=== PATIENT | female | born 1995 | race Caucasian/White ===

== ENCOUNTER 2017-09-27 22:01 | Emergency (ER) | payer OTHER ==
[~2017-09-27] VITALS: Ht 180.3 cm; Wt 104.3 kg
[~2017-09-27 22:01] MED LIST: MEDR150D3 IM
--- NOTE | 2017-09-27 22:21 | PHYS DOC ---
General Chief Complaint: CHEST PAIN Stated Complaint: CHEST PRESURE Time Seen by MD: 22:03 Source: patient Exam Limitations: no limitations Problems: History of Present Illness Initial Comments 22-year-old female comes in the ED complaining of chest pain. 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 No nausea vomiting or diaphoresis no arm or neck symptoms, the symptoms scared her so she came in for evaluation. She has history of sinus bradycardia she's been fully evaluated by cardiology in the past. She has exams tomorrow and is very stressed no history of panic attacks or anxiety in the past. Timing/Duration: 1-3 hours Severity: moderate Modifying Factors: improves with other Associated Symptoms: chest pain, shortness of breath, other Allergies: Coded Allergies: Sulfa (Sulfonamide Antibiotics) (Verified Allergy, Unknown, 08/17/15) Past Medical History Medical History: other (sinus bradycardia, migraines) Surgical History: no surgical history Family History Significant Family History: other Social History Smoker: non-smoker Alcohol: none Drugs: none Review of Systems Constitutional: denies chills, denies fever, denies malaise Respiratory: denies cough, shortness of breath, denies wheezing Cardiovascular: chest pain, palpitations, denies syncope Gastrointestinal: denies abdominal pain, denies nausea, denies vomiting Musculoskeletal: denies back pain, denies joint swelling, denies neck pain Psychiatric/Neurological: denies headache, denies numbness, denies paresthesia , denies weakness Hematologic/Lymphatic: denies blood clots, denies easy bleeding, denies easy bruising Physical Exam General Appearance: WD/WN, no apparent distress Eyes: bilateral eye normal inspection, bilateral eye PERRL, bilateral eye EOMI Ear, Nose, Throat: hearing grossly normal, normal ENT inspection Neck: non-tender, full range of motion, supple Respiratory: normal breath sounds, no respiratory distress Cardiovascular: normal peripheral pulses, bradycardia Gastrointestinal: non tender, soft Back: no CVA tenderness, no vertebral tenderness Extremities: non-tender, normal inspection, no pedal edema, no calf tenderness 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 Interpreted by me. AP chest: No acute cardiopulmonary process interpreted by me Potassium 3.4 (20 mEq given by mouth) otherwise labs reassuring Patient received GI cocktail, potassium by mouth, and Ativan 0.5 mg IV. Shortly thereafter her symptoms resolved completely and she was requesting discharge home. She feels like the Ativan relieved her symptoms, admits to some anxiety. I discussed departure instructions face to face and provided them as below. Discussed signs and symptoms to monitor as well as indications for urgent return to the department. Discussed stress management, prescription and over-the -counter medications. Discussed dietary recommendations and the patient's questions were answered to her satisfaction. She expressed agreement and understanding with the treatment plan. Departure Time of Disposition: 00:40 Disposition: HOME, SELF-CARE Diagnosis: anxiety, hypokalemia Condition: IMPROVED Patient Instructions: Anxiety and Panic Attacks, [id number]-[id number], Hypokalemia- Brief Additional Instructions: Please review the patient education materials given by ED staff. One banana daily to supplement potassium. Consider exercise, counseling, or follow-up with your doctor if you feel anxiety is increasing. School/work excuse for today September 28. Follow-up with your doctor in 3-5 days for recheck. Return to ED with new or changing symptoms. ANGELINA CARRENO DO Sep 27, 2017 22:21
[2017-09-27] MEDS ORDERED: LORazepam 2 MG/ML VIAL IV ONE (22:45)
[2017-09-27 22:54] LABS: BASO % 1 % (0-3); EOS # 0.1 x10^3/uL (0.0-0.7); EOS % 2 % (0-3); HEMATOCRIT 40.7 % (36.0-47.0); LYMPH # 2.5 x10^3/uL (1.0-4.8); LYMPH % 40 % (24-48); MEAN CORPUSCULAR HEMOGLOBIN 31 pg (25-35); MEAN CORPUSCULAR HGB CONC 34 g/dL (31-37); MEAN CORPUSCULAR VOLUME 90 fL (79-100); MONO # 0.3 x10^3/uL (0.0-1.1); MONO % 5 % (0-9); NEUT # 3.2 x10^3uL (1.8-7.7); NEUT % 53 % (31-73); PLATELET COUNT 184 x10^3/uL (140-400); RED BLOOD COUNT 4.52 x10^6/uL (3.50-5.40); RED CELL DISTRIBUTION WIDTH 13.1 % (11.5-14.5); WHITE BLOOD COUNT 6.1 x10^3/uL (4.0-11.0)
[2017-09-27 23:03] LABS: ALBUMIN/GLOBULIN RATIO 1.3 (1.0-1.7); CREATININE 0.7 mg/dL (0.6-1.0); GFR 104.6; POTASSIUM 3.4 mmol/L (3.5-5.1); TOTAL BILIRUBIN 0.5 mg/dL (0.2-1.0)
[2017-09-27] MEDS ORDERED: LIDO:MAALOX 1:1 20 ML SINGLE DOSE PO ONE (23:30)
[2017-09-27] MEDS ORDERED: POTASSIUM CHLORIDE 20 MEQ TABLET.ER. PO ONE (23:30)
[2017-09-28 00:45] VITALS: BP 117/73
--- NOTE | 2017-09-28 00:50 | EKG ---
[address] [id number] Test Date: 2017-09-27 Test Time: 22:12:42 Pat Name: KAYA PAREDES Department: Room: Gender: F Poster: : 1995 Requested By: ANGELINA CARRENO Order Number: [id number] Reading MD: Measurements Intervals [place] Rate: 50 P: 42 LA: 166 QRS: 77 QRSD: 86 T: 63 QT: 420 QTc: 385 Interpretive Statements SINUS RHYTHM ATRIAL PREMATURE COMPLEX(ES) OTHERWISE NORMAL ECG RI6.01 No previous ECG available for comparison
--- NOTE | 2017-09-28 07:48 | RAD ---
Portable AP view CXR: Clinical indications: Chest pain and shortness of breath tonight. Comparison: August 17, 2015 Findings: No acute lung infiltrate or pleural effusion or pulmonary edema or lung mass or pneumothorax is seen. The heart size, pulmonary vasculature, mediastinum and both rachelle are unremarkable. Impression: No acute radiographic abnormality is seen.
== END 2017-09-28 00:58 | disposition home or self-care (01) ==
LOC: ER 22:01
DX: F41.9 Anxiety disorder, unspecified (principal); E87.6 Hypokalemia; G43.909 Migraine, unspecified, not intractable, without status migrainosus; Z88.2 Allergy status to sulfonamides
CPT/HCPCS: 36415; 71045; 80053; 82550; 83690; 84484; 85025; 85379; 93005; 96374; 99285; J2060

== ENCOUNTER 2018-12-18 15:30 | Emergency (ER) | payer OTHER ==
[~2018-12-18] VITALS: Ht 180.3 cm; Wt 104.3 kg
[2018-12-18 15:30] VITALS: BP 118/77
--- NOTE | 2018-12-18 16:03 | PHYS DOC ---
Past History Past Medical History: No Pertinent History Past Surgical History: No Surgical History Alcohol Use: Occasionally Drug Use: None Adult General Chief Complaint Chief Complaint: ANKLE PROBLEM HPI HPI Patient is a 23-year-old female presents complaining of right ankle pain. She was goofing off with her partner who picked her up and let her down when she landed on her right ankle itself. Patient is uncertain specifically how the injury happened. She denies any inversion or eversion mechanism. She has been able to walk on it both at the time of the injury as well as since then. She notes increased swelling. No numbness or tingling. No significant improvement with acetaminophen or ibuprofen. She has a previous history of ankle sprains but this one feels worse than previous ones.[] Review of Systems Review of Systems Constitutional: Denies fever or chills [] Eyes: Denies change in visual acuity, redness, or eye pain [] HENT: Denies nasal congestion or sore throat [] Respiratory: Denies cough or shortness of breath [] Cardiovascular: No chest pain or palpitations[] GI: Denies abdominal pain, nausea, vomiting, bloody stools or diarrhea [] : Denies dysuria or hematuria [] Musculoskeletal: Denies back pain, see history of present illness[] Integument: Denies rash or skin lesions [] Neurologic: Denies headache, focal weakness or sensory changes [] Endocrine: Denies polyuria or polydipsia [] All other systems were reviewed and found to be within normal limits, except as documented in this note. Allergies Allergies Allergies Coded Allergies Type Severity Reaction Last Updated Verified Sulfa (Sulfonamide Antibiotics) Allergy Unknown 08/17/15 Yes Physical Exam Physical Exam Constitutional: Well developed, well nourished, no acute distress, non-toxic appearance. [] HENT: Normocephalic, atraumatic, bilateral external ears normal, oropharynx moist, no oral exudates, nose normal. [] Eyes: PERRLA, EOMI, conjunctiva normal, no discharge. [] Neck: Normal range of motion, no tenderness, supple, no stridor. [] Cardiovascular:Heart rate regular rhythm, no murmur [] Lungs & Thorax: Bilateral breath sounds clear to auscultation [] Abdomen: Not examined. [] Skin: Warm, dry, no erythema, no rash. [] Back: No tenderness, no CVA tenderness. [] Extremities: Right ankle has edema and tenderness to palpation over the lateral malleolus. No base of the fifth metatarsal tenderness. No medial malleolus tenderness. No knee tenderness. She is distally neurovascularly intact. There is no ligamentous laxity in the ankle joint. Decreased active range of motion secondary to pain. No redness or bruising is appreciated. The other 3 extremities show: No tenderness, no cyanosis, no clubbing, ROM intact, no edema. [] Neurologic: Alert and oriented X 3, normal motor function, normal sensory function, no focal deficits noted. [] Psychologic: Affect normal, judgement normal, mood normal. [] Current Patient Data Vital Signs Vital Signs Date Time Temp Pulse Resp B/P (MAP) Pulse Ox O2 Delivery O2 Flow Rate FiO2 12/18/18 15:30 98.6 66 16 99 Room Air EKG EKG [] Radiology/Procedures Radiology/Procedures PROCEDURE: ANKLE RIGHT 3V Three-view right ankle study Clinical indications: Injury and pain. FINDINGS: Lateral soft tissue swelling is seen. There is a small calcification seen just lateral to the lateral body of the talus in the region of the talofibular ligament. However no adjacent bony defect is seen and therefore this does not appear to represent an avulsion fracture. No acute fracture is seen otherwise. The mortise ankle joint is intact. No lytic process is seen. Small plantar spur of the calcaneus is seen. IMPRESSION: No acute fracture.[] Course & Med Decision Making Course & Med Decision Making Pertinent Labs and Imaging studies reviewed. (See chart for details) ED course: Patient arrived, was placed in bed, and tolerated exam well. She was transported to and from radiology with any complications. After return of the imaging findings, these were discussed with the patient who voiced understand ing. A premade stirrup splint was a applied. She was distally neurovascularly intact after splint application. She was discharged in improved condition. Medical decision making: Patient appears to have an ankle sprain. No evidence of a fracture or dislocation. No evidence of neuro or vascular compromise.[] Dragon Disclaimer Dragon Disclaimer This electronic medical record was generated, in whole or in part, using a voice recognition dictation system. Departure Departure: Impression: Primary Impression: Right ankle sprain Disposition: HOME, SELF-CARE Condition: IMPROVED Referrals: ELI BATISTA MD (PCP) Follow-up in 2 days Patient Instructions: Ankle Sprain, Ankle Sprain, Acute, with Phase I Rehab- [facility] Additional Instructions: Follow-up with your regular doctor in 2 days. Rest the ankle is much is you can. Take the medication as prescribed. Return to the ER if worsening discomfort or any other concerns. Scripts Tramadol Hcl (TRAMADOL HCL) 50 Mg Tablet 50 MG PO PRN Q6HRS PRN for PAIN, #20 TAB Prov: TONJA CHANEL DO 12/18/18 Meloxicam (MELOXICAM) 7.5 Mg Tablet 7.5 MG PO DAILY for PAIN, #20 TAB Prov: TONJA CHANEL DO 12/18/18 Problem Qualifiers Primary Impression: Right ankle sprain Encounter type: initial encounter Involved ligament of ankle: unspecified ligament Qualified Codes: S93.401A - Sprain of unspecified ligament of right ankle, initial encounter TONJA CHANEL DO December 18, 2018 16:03
--- NOTE | 2018-12-18 16:16 | RAD ---
Three-view right ankle study Clinical indications: Injury and pain. FINDINGS: Lateral soft tissue swelling is seen. There is a small calcification seen just lateral to the lateral body of the talus in the region of the talofibular ligament. However no adjacent bony defect is seen and therefore this does not appear to represent an avulsion fracture. No acute fracture is seen otherwise. The mortise ankle joint is intact. No lytic process is seen. Small plantar spur of the calcaneus is seen. IMPRESSION: No acute fracture. Electronically signed by: Dalton Mendez MD (12/18/2018 4:13 PM) [facility]
[2018-12-18] MEDS ORDERED: MELO7.5T29 PO (16:27)
[2018-12-18] MEDS ORDERED: TRAM50TA PO (16:27)
== END 2018-12-18 16:30 | disposition home or self-care (01) ==
LOC: ER 15:30
DX: S93.401A Sprain of unspecified ligament of right ankle, initial encounter (principal); Z88.2 Allergy status to sulfonamides; X58.XXXA Exposure to other specified factors, initial encounter; Y93.89 Activity, other specified; Y92.89 Other specified places as the place of occurrence of the external cause; Y99.8 Other external cause status
CPT/HCPCS: 29515; 73610; 99284

== ENCOUNTER → 2019-11-10 | Outpatient (CLI) | payer OTHER ==
[~2019-11-10] MED LIST changes: +MELO7.5T29 PO; +TRAM50TA PO
== END | disposition home or self-care (01) ==
LOC: LAB 11:27
PROVIDERS: ATTEND Internal Medicine Cardiovascular Disease
DX: R06.03 Acute respiratory distress (principal); R05 Cough; Z20.828 Contact with and (suspected) exposure to other viral communicable diseases
CPT/HCPCS: 87635

== ENCOUNTER → 2020-02-08 | Outpatient (CLI) | payer OTHER | END | disposition home or self-care (01) | LOC: LAB 14:15 | PROVIDERS: ATTEND Internal Medicine Cardiovascular Disease | DX: Z20.828 Contact with and (suspected) exposure to other viral communicable diseases (principal) | CPT/HCPCS: 36415; U0003-CS ==

== ENCOUNTER → 2020-04-30 | Outpatient (CLI) | payer OTHER | END | disposition home or self-care (01) | LOC: LAB 07:28 | PROVIDERS: ATTEND Internal Medicine Cardiovascular Disease | DX: R43.8 Other disturbances of smell and taste (principal); J02.9 Acute pharyngitis, unspecified; Z20.828 Contact with and (suspected) exposure to other viral communicable diseases | CPT/HCPCS: U0003-CS ==

== ENCOUNTER → 2021-07-15 | Outpatient (CLI) | payer OTHER ==
[2021-07-15 14:53] LABS: BASO % 0 % (0-3); EOS # 0.1 x10^3/uL (0.0-0.7); EOS % 1 % (0-3); HEMATOCRIT 40.7 % (36.0-47.0); HEMOGLOBIN 13.6 g/dL (12.0-15.5); LYMPH # 1.2 x10^3/uL (1.0-4.8); LYMPH % 22 % (24-48); MEAN CORPUSCULAR HEMOGLOBIN 31 pg (25-35); MEAN CORPUSCULAR HGB CONC 33 g/dL (31-37); MEAN CORPUSCULAR VOLUME 94 fL (79-100); MONO # 0.5 x10^3/uL (0.0-1.1); MONO % 8 % (0-9); NEUT # 3.9 x10^3uL (1.8-7.7); NEUT % 69 % (31-73); PLATELET COUNT 163 x10^3/uL (140-400); RED BLOOD COUNT 4.33 x10^6/uL (3.50-5.40); RED CELL DISTRIBUTION WIDTH 12.2 % (11.5-14.5); WHITE BLOOD COUNT 5.7 x10^3/uL (4.0-11.0)
--- NOTE | 2021-07-15 15:28 | RAD ---
EXAM: Obstetrics sonogram. HISTORY: First trimester scan. TECHNIQUE: Sonographic imaging of the pelvis was performed. COMPARISON: None. FINDINGS: The uterus measures 9.1 x 5.7 x 5.1 cm. The cervix measures 2.6 cm. There is nabothian cyst s within the cervix. There is a single intrauterine gestational sac with pole and yolk sac. The crown-rump length is 8 mm, corresponding with a gestational age of 6 weeks and 6 days and due date o f 03/04/2022. The heart rate is 127 bpm. The ovaries are normal in size and demonstrate normal b lood flow. The gestational sac is normal in configuration and location. There is a round lesion with peripheral blood flow and central focal area of decreased echogenicity within the left ovary measurin g 2.0 cm there is no pelvic free fluid. IMPRESSION: 1. Single intrauterine fetus with a normal heart rate and gestational age patient also measurements o f 6 weeks and 6 days. 2. 2.0 cm lesion with peripheral blood flow within the left ovary, possibly a thick-walled involuting corpus luteum cyst. The possibility of a solid lesion is not excluded. Attention at the time of foll ow-up is recommended. Electronically signed by: Elise Guerra MD (07/15/2021 3:26 PM) [email or web address]
[2021-07-16 14:09] LABS: RUBELLA IGG ANTIBODY <0.90 index (Immune >0.99)
== END ==
LOC: US 12:56
PROVIDERS: ATTEND Obstetrics & Gynecology
DX: O09.71 Supervision of high risk pregnancy due to social problems, first trimester (principal); N83.8 Other noninflammatory disorders of ovary, fallopian tube and broad ligament; Z3A.01 Less than 8 weeks gestation of pregnancy
CPT/HCPCS: 36415; 76801; 76817; 84702; 85025; 85660; 86592; 86703; 86762; 86787; 86803; 86850; 86900; 86901; 87340

== ENCOUNTER → 2021-12-12 | Outpatient (CLI) | payer OTHER ==
[2021-12-12 09:35] LABS: BASO % 0 % (0-3); EOS # 0.1 x10^3/uL (0.0-0.7); EOS % 1 % (0-3); HEMATOCRIT 35.8 % (36.0-47.0); HEMOGLOBIN 11.9 g/dL (12.0-15.5); LYMPH # 1.3 x10^3/uL (1.0-4.8); LYMPH % 17 % (24-48); MEAN CORPUSCULAR HEMOGLOBIN 31 pg (25-35); MEAN CORPUSCULAR HGB CONC 33 g/dL (31-37); MEAN CORPUSCULAR VOLUME 94 fL (79-100); MONO # 0.4 x10^3/uL (0.0-1.1); MONO % 5 % (0-9); NEUT # 6.1 x10^3uL (1.8-7.7); NEUT % 77 % (31-73); PLATELET COUNT 137 x10^3/uL (140-400); RED CELL DISTRIBUTION WIDTH 13.5 % (11.5-14.5); WHITE BLOOD COUNT 7.9 x10^3/uL (4.0-11.0)
== END ==
LOC: LAB 07:45
PROVIDERS: ATTEND Obstetrics & Gynecology
DX: Z34.92 Encounter for supervision of normal pregnancy, unspecified, second trimester (principal)
CPT/HCPCS: 36415; 82950; 85025